=== PATIENT | female | born 1995 | race Caucasian/White ===

== ENCOUNTER 2021-10-26 15:57 | Outpatient (CLI) | payer BC, SELFPAY | END 2021-10-26 15:58 | disposition home or self-care (01) | PROVIDERS: PCP Nurse Practitioner Family; Visit Provider Advanced Practice Midwife | DX: Z39.2 Encounter for routine postpartum follow-up (principal) | CPT/HCPCS: 84443 ==

== ENCOUNTER 2023-03-14 09:54 | Emergency (ER) | payer BC, SELFPAY | END 2023-03-14 10:45 | disposition left against medical advice (07) | PROVIDERS: Emergency Provider Family Medicine; PCP Nurse Practitioner Family | DX: Z53.21 Procedure and treatment not carried out due to patient leaving prior to being seen by health care provider (principal) ==